=== PATIENT | female | born 1950 | race Caucasian/White ===

== ENCOUNTER → 2016-06-18 | Day surgery (SDC) | payer BC, OTHER ==
--- NOTE | 2016-06-10 11:31 | MH ---
cc: RHIANNON SOUZA MD DATE OF ADMISSION 06/18/2016 DATE OF 1950 REASON FOR ADMISSION Vaginal suspension, anterior and posterior repair. HISTORY The patient is a 65-year-old female 5, para 3. She has had a hysterectomy for uterine fibroids. She has symptomatology of pelvic organ prolapse manifested mainly by pelvic pressure, discomfort and bulge sensation. In the office, she has stage II pelvic organ prolapse, anterior, posterior and central compartment. She has been given options of observation, physical therapy, pessary, surgery. She opts for surgery at this time. PAST MEDICAL HISTORY The patient's medical history: 1. Peripheral neuropathy of uncertain etiology. 2. Hypertension 3. Gastroesophageal reflux disease 4. Hypercholesterolemia 5. Restless leg syndrome 6. Fibromyalgia 7. Benign fatty liver MEDICATIONS 1. Requip 5 mg p.o. b.i.d. 2. Omeprazole 40 mg p.o. q. day 3. Lovastatin 40 mg q. day 4. Aspirin 81 mg q day ALLERGIES SULFA, DEMEROL, PENICILLIN. She has taken cephalosporins in the past without difficulty. OBSTETRICAL HISTORY Three vaginal deliveries. GYNECOLOGIC HISTORY No STD's or abnormal Pap smears. Hysterectomy for benign condition. PAST SURGICAL HISTORY 1. Total abdominal hysterectomy 2. Vein stripping 3. Carpal tunnel surgery FAMILY HISTORY Noncontributory REVIEW OF SYSTEMS As above, no chest pain, orthopnea, PND. No nausea, vomiting, fever or chills. The vaginal bleeding or discharge. PHYSICAL EXAM On exam, she is afebrile, vital signs stable. Blood pressure is 120/70, height 5.5, weight 152, BMI is 25. GENERAL: Patient is alert and oriented in no acute distress. No sign of cognitive dysfunction or depression. HEENT: Within normal limits. NECK: Supple. No JVD. CHEST: Clear. HEART: Regular rate and rhythm. ABDOMEN: Soft and nontender. No hepatosplenomegaly. No CVA tenderness. PELVIC: Exam shows Aa is 0, point C is -1, Ap is 0. Genital hiatus is 6. Perineal body is 4, total vaginal length is 10. Levator muscles 1/5 on strength, sacral nerve reflexes are diminished. Further exam under anesthesia. EXTREMITIES: Normal. Skin without rashes. NEUROLOGIC: Nonfocal. No DVT signs. ASSESSMENT Patient with a stage II pelvic organ prolapse anterior, posterior and central compartment. The patient and I discussed management and treatment. At this point, she wants to proceed with the surgical correction. She is aware of the risks, benefits and alternatives of the planned procedures including damage to surrounding organs, bleeding, infection, new onset incontinence, pain with intercourse, failure of repair upwards of 20% as discussed. Also issues regarding chronic pelvic pain, exacerbation of fibromyalgia and possible need for catheterization is discussed. At this point, we anticipate outpatient procedure. She has a penicillin allergy, but has used cephalosporins in the past. We used Ancef one gram IV for prophylaxis and DVT prophylaxis with sequential compression device. MD UBALDO Beebe/REMA /10:34 AM /11:20 AM
[~2016-06-18] VITALS: Ht 167.6 cm; Wt 70.4 kg
[~2016-06-18] MED LIST: ASPI1TAB69 PO; AZO-95TA2 PO; BROMSYP PO; DEXAMETHASONE SOD PHOS 4 MG/ML VIAL ONE; DEXT1CAP5 PO; DO NOT ADM ANY ANTICOAGULANT DRUGS XX PRN; ESTROGENS CONJUGATED VAG CREA 15 APPL/30 GM TUBE ONE; FAMOTIDINE 20 MG/2 ML VIAL ONE; FLUORESCEIN SOD 10% SOLN 500 MG/5 ML AMP IV ONE; GAS-80CH CHEW; INSULIN HUMAN REGULAR 1,000 UNITS/10 ML VIAL SQ PRN; KETO10 PO; KETOROLAC TROMETHAMINE 10 MG TAB PO PRN; KETOROLAC TROMETHAMINE 30 MG/ML (IVP) VIAL IV PUSH PRN; KETOROLAC TROMETHAMINE 60 MG/2 ML (IM) VIAL IM ONE; LACTATED RINGER'S 1000 ML INJ 1,000 ML IV ONE; LACTATED RINGER'S 1000 ML IV SCH; LIBRAX PO; LIDOCAINE 1%/EPINEPHrine 1:100,000 SOLN 20 ML VIAL ONE; LOVA40TA PO; METHYLENE BLUE 10 MG/ML VIAL ONE; METOPROLOL TARTRATE 25 MG TAB PO PRN; MIDAZOLAM HCL 2 MG/2 ML VIAL ONE; ONDANSETRON HCL 4 MG/2 ML VIAL IV PUSH ONE; ONDANSETRON HCL 4 MG/2 ML VIAL IV PUSH PRN; PROPOFOL 200 MG/20 ML AMP IV ONE; REQU5TAB PO; SODIUM CHLORID 0.9% 500 ML IV SCH; SODIUM CHLORIDE 0.9% INJ 100 ML ONE; SYSTSOL EACH EYE; ceFAZolin 1,000 MG/NS 100 ML IV SCH; ceFAZolin INJ 1,000 MG VIAL ONE; fentaNYL CITRATE 250 MCG/5 ML AMP ONE
[2016-06-18 07:01] VITALS: BP 128/77; PULSE 81; RESP 20; TEMP 98; O2SAT 100
--- NOTE | 2016-06-18 08:06 | EKG ---
Date Performed: 06/18/2016 Time Performed: 07:04:08 PTAGE: 65 years EKG: Sinus rhythm NORMAL ECG NO SIGNIFICANT CHANGE FROM PRIOR ELECTROCARDIOGRAM. PREVIOUS TRACING : 03/20/2007 21.30 DOCTOR: Cesar Liang Interpretating Date/Time 06/18/2016 08:04:09
[2016-06-18 12:30] VITALS: BP 158/65; PULSE 106; RESP 20; TEMP 98.5; O2SAT 98
--- NOTE | 2016-06-24 13:02 | MP ---
cc: RHIANNON SOUZA MD DATE OF SURGERY 06/18/2016 PREOPERATIVE DIAGNOSIS Pelvic organ prolapse anterior, posterior and apical compartment. POSTOPERATIVE DIAGNOSIS Pelvic organ prolapse anterior, posterior and apical compartment. PROCEDURE 1. Anterior and posterior repair with enterocele repair. 2. Modified coccygeus ligament suspension of vaginal vault. 3. Diagnostic cystoscopy. SURGEON Dr. Souza ANESTHESIA Spinal with IV sedation. TUB OPERATOR [place] staff x 2. FLUIDS 2000 cc crystalloid. URINE OUTPUT 300 cc FINDINGS External genitalia poorly estrogenized. POP-Q score: Aa is 0, Ap is 0. Point C is -4. Total vaginal length is 10. Genital hiatus is 6. Perineal body is 3. Following repair, Aa is -3, Ap is -3. Point C is -8. Total vaginal length is 10. Genital hiatus is 5. Perineal body is 4. Cystoscopy shows normal trigone, good coaptation of urethra. Ureteral orifices patent x 2. Dome and base of bladder normal. Rectal exam normal following repair. SPECIMENS None. COMPLICATIONS None. DISPOSITION To recovery room stable. COUNTS Sponge and needle counts were correct. DRAINS Rin[place] catheter IV ANTIBIOTIC PROPHYLAXIS Ancef 1 gram. DVT PROPHYLAXIS Sequential compression device. TIME-OUT PROCEDURE Per protocol. SUMMARY OF INDICATIONS FOR PROCEDURE The patient with symptomatic pelvic organ prolapse all three compartments. PROCEDURE The patient was taken to the operating room theatre, identified, prepped and draped in fashion appropriate for the planned procedure. She was in dorsal spine position with careful attention paid to position of the legs in the stirrups to avoid undue stress to sensitive neurovascular structures. The above findings noted, neurovascular integrity documented. Rincon catheter was placed. Methylene blue was instilled into the bladder. It should be noted that the patient had concerns about memory issues related to general anesthesia and she had decided to have spinal anesthesia with sedation The anterior compartment was identified, infiltrated with epinephrine-lidocaine solution. A midline incision was made from the vaginal apex to approximately 1 cm below the urethral meatus. There was no spilled methylene blue with dissection. Cystocele repair was performed without difficulty. The vaginal cuff was trimmed and the mucosa was closed with a running Vicryl suture. Cystoscopy was performed using a 17-Mexican bridge, a 70-degree scope. The patient had received IV fluorescein 1 cc. With entry of the scope it was notable for patent ureters x 2, dome and base of bladder normal. The posterior compartment still had significant defect as the vaginal apex as well. We infiltrated here with epinephrine- lidocaine solution, made a midline incision from the vaginal introitus up to the apex, reflected the rectal tissues. There was no damage to the rectum. I had one finger in the rectum to give us traction and countertraction. Posterior repair was performed, enterocele repair performed with delayed absorbable suture. Modified coccygeus suspension was performed with lateral stitch on the right. The vaginal cuff was trimmed. The hemostatic matrix was used for added reassurance for hemostasis to obviate the need for packing. The mucosa was closed with a running Vicryl suture. Perineorrhaphy was performed in standard fashion with delayed absorbable suture. Rectal exam confirmed no damage to the rectum. The suture line was intact. The procedure was concluded. The patient went to Recovery in stable condition. MD UBALDO Beebe/JOSE /10:00 AM /12:50 PM
== END | disposition home or self-care (01) ==
LOC: HSDC 06:16
PROVIDERS: ATTEND Obstetrics & Gynecology Gynecology
DX: N99.3 Prolapse of vaginal vault after hysterectomy (principal); R10.2 Pelvic and perineal pain; G89.29 Other chronic pain; I10 Essential (primary) hypertension; K21.9 Gastro-esophageal reflux disease without esophagitis; E78.00 Pure hypercholesterolemia, unspecified; G25.81 Restless legs syndrome; M79.7 Fibromyalgia; G62.9 Polyneuropathy, unspecified; Z79.82 Long term (current) use of aspirin; Z88.0 Allergy status to penicillin
CPT/HCPCS: 00840; 57260; 57282; 93005; J0690; J1100; J1885; J2250; J2405; J3010; J7120